=== PATIENT | female | born 1995 | race Caucasian/White ===

== ENCOUNTER 2016-10-30 01:57 | Emergency (ER) | payer OTHER ==
[~2016-10-30] VITALS: Ht 162.6 cm; Wt 103.1 kg
[~2016-10-30 01:57] MED LIST: BCPILLS PO
[2016-10-30 01:59] VITALS: TEMP 37; Ht 162.6 cm; Wt 103.1 kg
[2016-10-30] MEDS ORDERED: LORAZEPAM 2 MG/ML 1 ML VIAL IV STA (02:30)
[2016-10-30] MEDS ORDERED: ONDANSETRON INJ 2 MG/ML 2 ML VIAL IV STA (02:30)
[2016-10-30 02:52] LABS: BASO % 0.2 %; BASO ABS # 0.02 K/uL (0-0.2); COMPLETE YES; EOS % 0.7 %; HEMATOCRIT 41.7 % (37-47); IG% 0.1 %; LYMPH % 23.5 %; LYMPH ABS # 1.94 K/uL (1.2-3.4); MEAN CELL VOLUME 81.6 fL (80-100); MEAN CORPUSCULAR HEMOGLOBIN 27.4 pg (25-34); MEAN CORPUSCULAR HGB CONC 33.6 g/dl (32-36); MEAN PLATELET VOLUME 10.3 fL (7.4-10.4); MONO % 9.3 %; NEUT % 66.2 %; PLATELET COUNT 285 K/uL (130-400); RED BLOOD COUNT 5.11 M/uL (4.2-5.4); WHITE BLOOD COUNT 8.27 K/uL (4.8-10.8)
[2016-10-30 02:53] VITALS: O2SAT 98
[2016-10-30] MEDS ORDERED: SODIUM CHLORIDE 0.9% 500ML 500 ML IV STA (03:04)
[2016-10-30 03:09] LABS: BLOOD UREA NITROGEN 13 mg/dl (7-18); BUN/CREATININE RATIO 13.4 (10-20); CARBON DIOXIDE 25 mmol/L (21-32); CHLORIDE 107 mmol/L (98-107); CREATININE 0.98 mg/dl (0.60-1.20); GLUCOSE 114 mg/dl (70-99); SODIUM 142 mmol/L (136-145)
[2016-10-30 03:14] LABS: CKMB/CK RATIO 0.6 (0-3.0)
[2016-10-30] MEDS ORDERED: OPTIRAY 320 IV PRN (03:15)
[2016-10-30 03:20] LABS: PREG INTERNAL NEGATIVE QC NEG CLEAR BACKGROUND; PREG INTERNAL POSITIVE QC POS CONTROL LINE
--- NOTE | 2016-10-30 04:24 | EMERGENCY ROOM VISIT NOTE ---
History First contact with patient: 02:27 Chief Complaint: OTHER COMPLAINT Stated Complaint: NUMBNESS IN LFT ELBOW,UPSET STOMACH,TROUBLE BREATH History of Present Illness The patient is a 21 year old female who presents to the Emergency Room with complaints of nausea, mild source of breath and tingling in the left elbow down to the fingers. Patient states she's concerned she is having a heart attack. Patient denies chest pain, fever, chills, cough, congestion, shoulder pain, jaw pain, neck pain, abdominal pain, vomiting, diarrhea. She does not smoke. No control. No recent travel. No leg pain or swelling. Distant family history of heart disease. Review of Systems See HPI for pertinent positives & negatives. A total of 10 systems reviewed and were otherwise negative. Past Medical/Surgical History None Social History Smoking Status: Never Smoker Smokeless Tobacco Use: No Alcohol Use: occasionally Drug Use: none Occupation Status: employed, [employer] student Current/Historical Medications Scheduled Control Pills ( Control Pills), 1 TAB PO DAILY Allergies Coded Allergies: No Known Allergies (Unverified , NKA, 08/08/12) Physical Exam Vital Signs Date Time Temp Pulse Resp B/P Pulse Ox O2 Delivery O2 Flow Rate FiO2 10/30/16 02:58 79 16 125/86 98 Room Air 10/30/16 02:53 98 Room Air 10/30/16 02:30 87 10/30/16 01:59 37.0 85 20 157/90 99 Room Air Physical Exam VITALS: Vitals are noted on the nurse's note and reviewed by myself. Vital signs stable. GENERAL: Pleasant female anxious-appearing, in no acute distress, nondiaphoretic , well-developed well-nourished. SKIN: The skin was without rashes, erythema, edema, or bruising. There is no tenting of the skin. Capillary reflex less than 2 seconds. HEAD: Normocephalic atraumatic. EARS: External auditory canals clear, tympanic membranes pearly damon without erythema or effusion bilaterally. EYES: Pupils equal round and reactive to light and accommodation. Conjunctivae without injection, sclerae without icterus. Extraocular movements intact. NOSE: Patent, turbinates without inflammation or discharge. MOUTH: Mucous membranes moist. Pharynx without erythema or exudate. Uvula midline. Airway patent. Tongue does not deviate. NECK: Supple without nuchal rigidity. No lymphadenopathy. No thyromegaly. Cervical spine is nontender. No JVD. HEART: Regular rate and rhythm without murmurs gallops or rubs. LUNGS: Clear to auscultation bilaterally without wheezes, rales or rhonchi. No dullness to percussion. No retractions or accessory muscle use. ABDOMEN: Positive bowel sounds x 4. Normal tympanic percussion. Soft, nontender, without masses or organomegaly. Arreola sign negative. No guarding or rebound tenderness. MUSCULOSKELETAL: No muscle atrophy, erythema, or edema noted. NEURO: Patient was alert and oriented to person place and time. Normal sensation to light and sharp touch. No focal neurological deficits. Medical Decision & Procedures Laboratory Results 10/30/16 02:43 Red Blood Count 5.11, Mean Corpuscular Volume 81.6, Mean Corpuscular Hemoglobin 27.4, Mean Corpuscular Hemoglobin Concent 33.6, Mean Platelet Volume 10.3, Neutrophils (%) (Auto) 66.2, Lymphocytes (%) (Auto) 23.5, Monocytes (%) (Auto) 9.3, Eosinophils (%) (Auto) 0.7, Basophils (%) (Auto) 0.2, Neutrophils # (Auto) 5.47, Lymphocytes # (Auto) 1.94, Monocytes # (Auto) 0.77, Eosinophils # (Auto) 0.06, Basophils # (Auto) 0.02 10/30/16 02:43 Test 10/30/16 02:43 10/30/16 02:46 White Blood Count 8.27 K/uL (4.8-10.8) Red Blood Count 5.11 M/uL (4.2-5.4) Hemoglobin 14.0 g/dL (12.0-16.0) Hematocrit 41.7 % (37-47) Mean Corpuscular Volume 81.6 fL (80-100) Mean Corpuscular Hemoglobin 27.4 pg (25-34) Mean Corpuscular Hemoglobin Concent 33.6 g/dl (32-36) Platelet Count 285 K/uL (130-400) Mean Platelet Volume 10.3 fL (7.4-10.4) Neutrophils (%) (Auto) 66.2 % Lymphocytes (%) (Auto) 23.5 % Monocytes (%) (Auto) 9.3 % Eosinophils (%) (Auto) 0.7 % Basophils (%) (Auto) 0.2 % Neutrophils # (Auto) 5.47 K/uL (1.4-6.5) Lymphocytes # (Auto) 1.94 K/uL (1.2-3.4) Monocytes # (Auto) 0.77 K/uL (0.11-0.59) Eosinophils # (Auto) 0.06 K/uL (0-0.5) Basophils # (Auto) 0.02 K/uL (0-0.2) RDW Standard Deviation 41.1 fL (36.4-46.3) RDW Coefficient of Variation 13.7 % (11.5-14.5) Immature Granulocyte % (Auto) 0.1 % Immature Granulocyte # (Auto) 0.01 K/uL (0.00-0.02) Anion Gap 10.0 mmol/L (3-11) Est Creatinine Clear Calc Drug Dose 105.3 ml/min Estimated GFR () 94.9 Estimated GFR (Non- 81.9 BUN/Creatinine Ratio 13.4 (10-20) Calcium Level 9.0 mg/dl (8.5-10.1) Total Creatine Kinase 77 U/L (26-192) Creatine Kinase MB 0.5 ng/ml (0.5-3.6) Creatine Kinase MB Ratio 0.6 (0-3.0) Troponin I < 0.015 ng/ml (0-0.045) Human Chorionic Gonadotropin, Qual NEG (NEG) Bedside D-Dimer > 450 ng/mlFEU (0-450) Medications Administered Medications (Trade) Dose Ordered Sig/Dario Route Start Time Stop Time Status Last Admin Dose Admin Lorazepam (Ativan Inj) 0.5 mg NOW STAT IV 10/30/16 02:30 10/30/16 02:33 DC 10/30/16 02:54 0.5 MG Ondansetron HCl 4 mg 4 mg NOW STAT IV 10/30/16 02:30 10/30/16 02:33 DC 10/30/16 02:53 4 MG Sodium Chloride (Nss 500ml) 500 ml @ 999 mls/hr Q31M STAT IV 10/30/16 03:04 10/30/16 03:34 DC 10/30/16 03:31 999 MLS/HR ED Course Prior records/ancillary studies reviewed. Triage Nursing notes reviewed. Additional history obtained from family. The patient's history was concerning for chest pain. Differential diagnosis: Etiologies such as cardiac ischemia, aortic dissection, pulmonary embolism, pneumonia, pneumothorax, musculoskeletal, infections, pericarditis, myocarditis , esophageal rupture, gastrointestinal, as well as others were entertained. Physical examination: As above. ER treatment provided: ativan and zofran On reassessment the patient felt better. Diagnostic interpretation by me: The electrocardiogram was negative for pathologic change. Normal sinus, normal intervals, no acute ST-T wave changes. Impression normal sinus rhythm interpreted by myself The labs revealed negative troponin. No anemia. Elevated d-dimer so patient was sent for CTA for rule out PE Imaging studies: Chest x-ray no acute consolidation, free air or pneumothorax per my interpretation CTA was negative for PE. 2 cm cystic nodule in the right breast. Exam and history seem consistent with noncardiac symptoms. Patient was advised to follow-up with family medicine for further workup for incidental cyst seen on breast on CT. Patient is anxious appearing. Her symptoms could be related to this. She was neurovascularly and neurologically intact. She is asymptomatic. She is advised to rest, stay well-hydrated and to follow-up with health services in a few days or here in the ER sooner for chest pain, difficulty breathing, worsening signs or symptoms or as needed. Patient had a normal EKG. Negative troponin. Elevated d-dimer. Negative CTA. By the evaluation outlined above emergent etiologies such as cardiac ischemia, aortic dissection, pulmonary embolism, pneumonia, pneumothorax, infections, pericarditis, myocarditis, gastrointestinal, as well as others were deemed relatively unlikely. The pt informed about the findings as listed above. All questions were answered and pleased with the treatment. Return instructions were outlined and the patient was discharged in stable condition. Referral: The patient was referred back to primary care physician for follow-up in 2 to 3 days for a recheck of the current condition. Medical Decision As above Impression Primary Impression: Dyspnea Additional Impressions: Anxiety Hyperglycemia Nausea Departure Information Dispostion Home / Self-Care Condition GOOD Referrals Kae Moses D.O. (PCP) Patient Instructions A [facility], [facility] Additional Instructions Your glucose is slightly elevated tonight. Recheck this with your family care doctor in a week. You had a small cyst seen on your breast on CT imaging. See family care for ultrasound of this. Ibuprofen(Motrin, Advil) may be used for fever or pain. Use 600mg every six hours as needed. Take with food. Avoid using more than 2400mg in a 24 hour period. Do not use 2400mg per day for more than three consecutive days without physician direction. Prolonged inappropriate use can lead to stomach upset or ulcers. (AND/OR) Acetaminophen(Tylenol) may be used for fever or pain. Use 1000mg every six hours as needed. Avoid using more than 3000mg in a 24 hour period. Rest and drink plenty of fluids as tolerated. Continue current medications. Avoid strenuous activities and anything that worsens your pain. Resume normal activities once your symptoms resolve. Return to the ER immediately for worsening or persistent chest pain, abdominal pain, vomiting, fevers, chest pains, difficulty breathing, worsening of your condition, or as needed. Follow up with your primary physician in 2-3 days for a recheck of your current condition. Problem Qualifiers Primary Impression: Dyspnea Dyspnea type: unspecified Qualified Codes: R06.00 - Dyspnea, unspecified
[2016-10-30 04:39] VITALS: BP 124/77; PULSE 93; O2SAT 97
--- NOTE | 2016-10-30 07:14 | DIAGNOSTIC IMAGING REPORT ---
CHEST ONE VIEW PORTABLE CLINICAL HISTORY: Left-sided chest pain. COMPARISON STUDY: Chest radiograph August 08, 2012. FINDINGS: Lung volumes are normal. No pneumothorax or pleural effusion is present. Lungs are clear. Cardiac size is normal. Mediastinal contours are normal. IMPRESSION: No acute cardiopulmonary findings. Electronically signed by: Salo Andres M.D. 10/30/2016 7:13 AM Dictated Date/Time: 10/30/2016 7:09 AM
--- NOTE | 2016-10-30 07:25 | DIAGNOSTIC IMAGING REPORT ---
CT ANGIOGRAPHY OF THE CHEST, PULMONARY EMBOLUS PROTOCOL CLINICAL HISTORY: Shortness of breath. COMPARISON STUDY: Chest radiograph August 08, 2012 and October 30, 2016 TECHNIQUE: Following IV administration of 93 mL of Optiray-320, helical axial images of the chest were obtained utilizing the pulmonary embolus protocol. Maximal intensity projections and sagittal and coronal reformats were viewed on an independent 3D workstation. IV contrast was administered without complication. CT DOSE: 607.40 mGy.cm FINDINGS: No pulmonary emboli are identified. The possible filling defect within a left lower lobe pulmonary artery shown on axial image 143 of 271 is likely artifactual. There is no evidence of thoracic aortic dissection. The size of the heart is at the upper limits of normal. There is no pericardial effusion. Central airways are patent. No pneumothorax or pleural effusions present. There is no consolidation. Groundglass opacities represent atelectasis. There is made of a 2 cm nodule within the right breast which contains a coarse calcification. IMPRESSION: 1. No pulmonary emboli identified. 2. No acute intrathoracic findings. 3. 2 cm right breast nodule which contains a coarse calcification. This likely reflects a fibroadenoma although correlation with ultrasound is recommended. Electronically signed by: Salo Andres M.D. 10/30/2016 7:24 AM Dictated Date/Time: 10/30/2016 7:17 AM
== END 2016-10-30 04:40 | disposition home or self-care (01) ==
LOC: C.EDB 01:59
DX: R06.00 Dyspnea, unspecified (principal); F41.9 Anxiety disorder, unspecified; R73.9 Hyperglycemia, unspecified; R11.0 Nausea

== ENCOUNTER 2017-05-15 10:20 | Emergency (ER) | payer OTHER ==
[~2017-05-15] VITALS: Ht 162.6 cm; Wt 104.5 kg
[2017-05-15 10:22] VITALS: Ht 162.6 cm; Wt 104.5 kg
--- NOTE | 2017-05-15 10:36 | EMERGENCY ROOM VISIT NOTE ---
History Report prepared by Thuy: Zach Burrows Under the Supervision of: Dr. Sal Frazier M.D. First contact with patient: 10:26 Chief Complaint: ANKLE PAIN Stated Complaint: LEFT ANKLE PAIN-WORK RELATED INJURY History of Present Illness The patient is a 21 year old female who presents to the Emergency Room with complaints of sudden left ankle pain occurring prior to arrival. The patient states that she was at work, and she went down the stairs, and she tripped and rolled her ankle. She states that the pain goes into her toes and up her leg. The patient denies any back pain or other injury. She states that she has put ice on it, though she has not taken any medications yet. The patient states that she has severely sprained her ankle in the past, and she is not currently on blood thinners. She is currently on control. Source of History: patient Onset: prior to arrival Position: ankle (left) Timing: other (sudden) Associated Symptoms: No back pain Review of Systems See HPI for pertinent positives & negatives. A total of 6 systems reviewed and were otherwise negative. Past Medical & Surgical Medical Problems: (1) Left ankle sprain Social History Smoking Status: Never Smoker Alcohol Use: occasionally Drug Use: none Occupation Status: employed, [employer] student Current/Historical Medications Scheduled Control Pills ( Control Pills), 1 TAB PO DAILY Allergies Coded Allergies: No Known Allergies (Unverified , NKA, 08/08/12) Physical Exam Vital Signs Date Time Temp Pulse Resp B/P (MAP) Pulse Ox O2 Delivery O2 Flow Rate FiO2 05/15/17 11:28 36.9 62 18 130/85 100 05/15/17 10:22 36.9 64 18 131/87 100 Room Air Physical Exam GENERAL: Patient is mildly uncomfortable but well appearing and in no acute distress. HEENT: No acute trauma, normocephalic atraumatic, mucous membranes moist, no nasal congestion, no scleral icterus. NECK: No stridor, no adenopathy, no meningismus, trachea is midline. LUNGS: No dyspnea. Clear to auscultation and equal bilaterally. No wheeze, no rhonchi. HEART: Regular rate and rhythm. No murmurs, rubs, gallops appreciated. BACK: No midline tenderness, no CVA tenderness EXTREMITIES: Swelling over the lateral malleolus. Tenderness to palpation in the mild mid fibula. Tenderness on the left. NV intact. Normal motion all extremities, no cyanosis. NEUROLOGIC: Alert and oriented, no acute motor or sensory deficits, no focal weakness, cranial nerves grossly intact. SKIN: No rash, no jaundice, no diaphoresis. Medical Decision & Procedures ER Provider Diagnostic Interpretation: X ray results are stated below per my interpretation and the radiologist's interpretation. LEFT ANKLE MIN 3 VIEWS ROUTINE CLINICAL HISTORY: Trauma left ankle, fell down a step COMPARISON: Left ankle radiographs January 29, 2015. FINDINGS: Alignment of the left ankle is anatomic. There is no acute fracture. There is moderate lateral ankle soft tissue swelling. Talar dome is intact. IMPRESSION: 1. No acute fracture or dislocation of the left ankle. 2. Moderate lateral ankle soft tissue swelling. Electronically signed by: Salo Andres M.D. 05/15/2017 11:00 AM Dictated Date/Time: 05/15/2017 10:59 AM LEFT TIBIA/FIBULA 2 VIEWS ROUTINE CLINICAL HISTORY: Left ankle injury radiation to knee COMPARISON: Left ankle radiographs January 29, 2015. FINDINGS: No acute fracture of the left tibia or fibula is identified. Alignment of the left knee and ankle is anatomic. A lucency projecting over the proximal left tibia on lateral projection is likely artifactual. IMPRESSION: No definite fracture of the left tibia or fibula. Lucency projecting over the proximal left tibia on lateral projection is likely artifactual although if persistent left knee pain, left knee radiographs are recommended. Electronically signed by: Salo Andres M.D. 05/15/2017 11:02 AM Dictated Date/Time: 05/15/2017 11:00 AM ED Course 1026: The patient was evaluated in room D5. A complete history and physical exam was performed. 1114: Reevaluated the patient. Discussed results and discharge instructions: She verbalized understanding and agreement. She states that she has crutches at home, and she will follow up with her PCP as necessary. The patient is ready for discharge. Medical Decision Differential: Fracture, Dislocation, Ligamentous Injury, amongst other pathologies entertained. 21 yr old female arrives with complaint of left ankle injury s/p roll. Swelling lateral malleolus. No TTP over foot itself though some mid fibular TTP. Imaging without fracture. Clearly sprained. Gel splint with crutches ( has crutches at home). Reviewed sprain plan of care and follow up. Medication Reconcilliation Current Medication List: was personally reviewed by me Blood Pressure Screening Patient's blood pressure: Elevated blood pressure Blood pressure disposition: Elevated BP felt to be situational Impression Primary Impression: Moderate left ankle sprain Scribe Attestation The scribe's documentation has been prepared under my direction and personally reviewed by me in its entirety. I confirm that the note above accurately reflects all work, treatment, procedures, and medical decision making performed by me. Departure Information Dispostion Home / Self-Care Referrals Kae Moses D.O. (PCP) Forms HOME CARE DOCUMENTATION FORM, IMPORTANT VISIT INFORMATION Patient Instructions Ankle Sprain, [facility] Problem Qualifiers Primary Impression: Moderate left ankle sprain Encounter type: initial encounter Qualified Codes: S93.402A - Sprain of unspecified ligament of left ankle, initial encounter
--- NOTE | 2017-05-15 11:01 | DIAGNOSTIC IMAGING REPORT ---
LEFT ANKLE MIN 3 VIEWS ROUTINE CLINICAL HISTORY: Trauma left ankle, fell down a step COMPARISON: Left ankle radiographs January 29, 2015. FINDINGS: Alignment of the left ankle is anatomic. There is no acute fracture. There is moderate lateral ankle soft tissue swelling. Talar dome is intact. IMPRESSION: 1. No acute fracture or dislocation of the left ankle. 2. Moderate lateral ankle soft tissue swelling. Electronically signed by: Salo Andres M.D. 05/15/2017 11:00 AM Dictated Date/Time: 05/15/2017 10:59 AM
--- NOTE | 2017-05-15 11:04 | DIAGNOSTIC IMAGING REPORT ---
LEFT TIBIA/FIBULA 2 VIEWS ROUTINE CLINICAL HISTORY: Left ankle injury radiation to knee COMPARISON: Left ankle radiographs January 29, 2015. FINDINGS: No acute fracture of the left tibia or fibula is identified. Alignment of the left knee and ankle is anatomic. A lucency projecting over the proximal left tibia on lateral projection is likely artifactual. IMPRESSION: No definite fracture of the left tibia or fibula. Lucency projecting over the proximal left tibia on lateral projection is likely artifactual although if persistent left knee pain, left knee radiographs are recommended. Electronically signed by: Salo Andres M.D. 05/15/2017 11:02 AM Dictated Date/Time: 05/15/2017 11:00 AM
[2017-05-15 11:28] VITALS: BP 130/85; PULSE 62; TEMP 36.9; O2SAT 100
== END 2017-05-15 11:29 | disposition home or self-care (01) ==
LOC: C.EDB 10:22 → C.EDD 11:29
DX: S93.402A Sprain of unspecified ligament of left ankle, initial encounter (principal); W18.43XA Slipping, tripping and stumbling without falling due to stepping from one level to another, initial encounter; Y99.0 Civilian activity done for income or pay; Z79.3 Long term (current) use of hormonal contraceptives